=== PATIENT | female | born 1960 ===

== ENCOUNTER 2022-04-15 08:26 | Outpatient (CLI) | payer OTHER | END 2022-04-15 08:40 | disposition home or self-care (01) | LOC: SONOGRAMA 08:26 | PROVIDERS: ATTEND Obstetrics & Gynecology Gynecology | DX: D25.0 Submucous leiomyoma of uterus (principal); N84.0 Polyp of corpus uteri; R93.89 Abnormal findings on diagnostic imaging of other specified body structures ==